=== PATIENT | male | born 1985 | race Two or more races ===

== ENCOUNTER 2017-06-16 12:12 | Inpatient (IN) | payer OTHER ==
[~2017-06-16] VITALS: Ht 182.9 cm; Wt 78.5 kg
[2017-06-16] MEDS ORDERED: LIDOCAINE 2% JELLY 11ml (GLYDO) ONE (13:03)
[2017-06-16] MEDS ORDERED: ONDANSETRON HCL 4 MG/2 ML VIAL IV ONE (14:00)
[2017-06-16] MEDS ORDERED: MORPHINE SULFATE 10 MG/ML INJ 1ML SDV IV ONE (14:00)
[2017-06-16] MEDS ORDERED: HYDROcodone-ACET 10/325MG TAB PO SCH (15:00)
[2017-06-16] MEDS ORDERED: fentaNYL CITRATE 100 MCG/2 ML VL ONE (15:07)
[2017-06-16] MEDS ORDERED: MIDAZOLAM HCL 1MG/1ML-2 ML VIAL ONE (15:07)
[2017-06-16 15:22] LABS: Urine Bacteria FEW /hpf (None Seen); Urine Blood 3+ /uL (Negative); Urine Mucus FEW (None Seen); Urine Specific Gravity 1.008 (1.001-1.035); Urine WBC 10 /hpf (0 - 3)
[2017-06-16] MEDS ORDERED: LIDOCAINE 2%HCL (LOCAL ANESTH.) INJ 20ML MDV ONE (15:38)
[2017-06-16 17:10] LABS: Basophils # (auto) 0 uL; Basophils % (auto) 0.3 % (0.0-2.0); Eosinophils # (auto) 0.1 uL; Eosinophils % (auto) 0.8 % (0.0-7.0); Hematocrit 42.3 % (41.0-53.0); Hemoglobin 14.6 g/dL (13.5-17.5); Lymphocytes % (auto) 9.5 % (10.0-50.0); Mean Corpuscular Hemoglobin 29.6 pg (28.0-32.0); Mean Corpuscular Hgb Conc. 34.7 g/dL (32.0-36.0); Mean Corpuscular Volume 85.4 fL (80.0-100.0); Monocytes # (auto) 0.9 uL; Monocytes % (auto) 8.6 % (0.0-12.0); Neutrophils # (auto) 8.6 uL; Neutrophils % (auto) 80.8 % (37.0-80.0); Platelet Count (auto) 140 10^3/uL (140-450); Red Blood Cells 4.95 10^6/uL (4.5-5.90); Red Cell Distribution Width 13.4 % (11.8-14.3); White Blood Cell 10.6 10^3/uL (4.4-10.8)
[2017-06-16 17:25] LABS: Albumin 3.9 g/dL (3.4-5.0); BUN/Creatinine Ratio 16.1; Calcium 8.9 mg/dL (8.5-10.1); Potassium 3.7 mmol/L (3.5-5.1)
[2017-06-16 17:28] LABS: Bilirubin, Total 0.9 mg/dL (0.2-1.0); Total Protein 6.8 g/dL (6.4-8.2)
[2017-06-16 17:34] LABS: INR 1.04 (0.9-1.15); Partial Thromboplastin Time 20.8 sec (22.64-33.71); Prothrombin Time 11.3 sec (9.37-12.3)
[2017-06-16 17:59] VITALS: BP 123/67
[2017-06-16] MEDS: TAMSULOSIN HYDROCHLORIDE 0.4 MG CAP PO SCH (18:10)
[2017-06-16] MEDS: HYDROcodone-ACET 10/325MG TAB PO PRN ×2 (18:10→22:28)
[2017-06-16] MEDS: MESALAMINE 400mg Delayed Release Cap PO SCH ×2 (18:11→22:28)
[2017-06-16] MEDS ORDERED: MULT-228 PO (18:31)
[2017-06-16] MEDS ORDERED: MESA1.2T PO (18:31)
[2017-06-16] MEDS ORDERED: CHOL20007 PO (18:31)
[2017-06-16 18:42] VITALS: BP 123/67
[2017-06-16] MEDS ORDERED: INFLUENZA QUAD 2017-2018 0.5 ML SYRG IM ONE (19:00)
[2017-06-16 22:00] VITALS: BP 111/47
[2017-06-16] MEDS: CHOLECALCIFEROL (VITD3) 1,000 UNIT TAB PO SCH (22:26)
[2017-06-16] MEDS: SULFAMETHOX W/TRIMETH(800/160MG) DS TAB PO SCH (22:26)
[2017-06-17] MEDS ORDERED: MORPHINE SULFATE 10 MG/ML INJ 1ML SDV IV ONE (00:15)
[2017-06-17] MEDS: HYDROcodone-ACET 10/325MG TAB PO PRN ×3 (03:38→21:05)
[2017-06-17 05:46] VITALS: BP 104/50
[2017-06-17] MEDS: MESALAMINE 400mg Delayed Release Cap PO SCH ×3 (06:23→22:06)
[2017-06-17 08:00] VITALS: BP 102/37
[2017-06-17 09:00] VITALS: BP 102/37
[2017-06-17] MEDS: CHOLECALCIFEROL (VITD3) 1,000 UNIT TAB PO SCH ×2 (09:08→22:06)
[2017-06-17] MEDS: SULFAMETHOX W/TRIMETH(800/160MG) DS TAB PO SCH ×2 (09:08→22:06)
[2017-06-17] MEDS ORDERED: ONDANSETRON HCL 4 MG/2 ML VIAL IV PRN (11:30)
[2017-06-17 12:52] VITALS: BP 123/77
[2017-06-17] MEDS: MORPHINE SULFATE 10 MG/ML INJ 1ML SDV IV PRN ×3 (13:38→22:09)
[2017-06-17 17:14] VITALS: BP 115/52
[2017-06-17] MEDS: TAMSULOSIN HYDROCHLORIDE 0.4 MG CAP PO SCH (17:48)
[2017-06-17 22:00] VITALS: BP 116/55
[2017-06-18] MEDS: MORPHINE SULFATE 10 MG/ML INJ 1ML SDV IV PRN ×3 (02:35→18:33)
[2017-06-18 05:00] VITALS: BP 104/58
[2017-06-18] MEDS: MESALAMINE 400mg Delayed Release Cap PO SCH ×2 (06:00→16:00)
[2017-06-18 08:00] VITALS: BP 117/55
[2017-06-18 09:00] VITALS: BP 117/55
[2017-06-18] MEDS ORDERED: ceFAZolin 1GM/50ML 50 ML IV ONE (09:16)
[2017-06-18 09:20] LABS: BUN/Creatinine Ratio 11.9; Calcium 8.5 mg/dL (8.5-10.1); Potassium 4.5 mmol/L (3.5-5.1)
[2017-06-18] MEDS ORDERED: MIDAZOLAM HCL 1MG/1ML-2 ML VIAL ONE (10:08)
[2017-06-18] MEDS ORDERED: PROPOFOL 10 MG/ML 20 ML IV ONE (10:08)
[2017-06-18] MEDS ORDERED: fentaNYL CITRATE 100 MCG/2 ML VL ONE (10:08)
[2017-06-18] MEDS ORDERED: ONDANSETRON HCL 4 MG/2 ML VIAL ONE (10:08)
[2017-06-18] MEDS ORDERED: SODIUM CHLORIDE LOCK 10 ML ONE (10:08)
[2017-06-18] MEDS ORDERED: HYDROmorphone HCL 2 MG/ML VL IV PRN (11:00)
[2017-06-18] MEDS ORDERED: METOCLOPRAMIDE HCL 5MG/ml INJ 2ml VIAL IV ONE (11:00)
[2017-06-18] MEDS ORDERED: KETOROLAC TROMETH 30 MG/ML 1ML VIAL IV ONE (11:00)
[2017-06-18 12:00] VITALS: BP 125/70
[2017-06-18] MEDS: SULFAMETHOX W/TRIMETH(800/160MG) DS TAB PO SCH (12:50)
[2017-06-18] MEDS: CHOLECALCIFEROL (VITD3) 1,000 UNIT TAB PO SCH (12:50)
[2017-06-18 14:05] VITALS: BP 125/70
[2017-06-18] MEDS: HYDROcodone-ACET 10/325MG TAB PO PRN (15:59)
[2017-06-18 17:30] VITALS: BP 121/55
[2017-06-18] MEDS: TAMSULOSIN HYDROCHLORIDE 0.4 MG CAP PO SCH (18:33)
== END 2017-06-18 21:47 | DRG 699 ==
LOC: ER 12:12 → OVERFLOW 12:13 → EEVIPCON 12:13 → EAST 18:30
PROVIDERS: ADMIT Internal Medicine; ATTEND Internal Medicine
PROC: 0T9B30Z Drainage of Bladder with Drainage Device, Percutaneous Approach (ICD-10-PCS; 2017-06-16)
PROC: 0T9B80Z Drainage of Bladder with Drainage Device, Via Natural or Artificial Opening Endoscopic (ICD-10-PCS; principal; 2017-06-18 10:11)
DX: N36.5 Urethral false passage (principal); K50.90 Crohn's disease, unspecified, without complications; R33.9 Retention of urine, unspecified; Z83.3 Family history of diabetes mellitus; Z87.442 Personal history of urinary calculi; Z88.1 Allergy status to other antibiotic agents; Z88.8 Allergy status to other drugs, medicaments and biological substances; Z91.041 Radiographic dye allergy status
CPT/HCPCS: 10022; 36415; 51702; 74176; 76856; 77012; 80048; 80053; 81001; 85025; 85610; 85730; 87086; 87088; 87186; 94761; A4223; C1729; J0690; J1885; J2250; J2405; J2704

== ENCOUNTER 2017-07-15 10:07 | Inpatient (IN) | payer OTHER ==
[~2017-07-15] VITALS: Ht 177.8 cm; Wt 78.6 kg
[~2017-07-15 10:07] MED LIST: CHOL20007 PO; MESA1.2T PO; MULT-228 PO
[2017-07-15] MEDS ORDERED: TAMSULOSIN HYDROCHLORIDE 0.4 MG CAP PO ONE ×2 (10:51→11:00)
[2017-07-15] MEDS ORDERED: SODIUM CHLORIDE 0.9% 1,000 ML IV ONE (10:51)
[2017-07-15] MEDS ORDERED: NALBUPHINE HCL 10 MG/1ml INJECTION IV ONE ×2 (11:00→12:45)
[2017-07-15] MEDS ORDERED: PROMETHAZINE HCL 25 MG/ML 1ML IV ONE (11:00)
[2017-07-15] MEDS ORDERED: LIDOCAINE 2% JELLY 11ml (GLYDO) ONE (11:12)
[2017-07-15] MEDS ORDERED: LIDOCAINE 2% JELLY 11ml (GLYDO) UR ONE (11:45)
[2017-07-15 11:50] LABS: Urine Bacteria FEW /hpf (None Seen); Urine Blood Negative /uL (Negative); Urine Specific Gravity 1.005 (1.001-1.035); Urine WBC 10 /hpf (0 - 3)
[2017-07-15] MEDS ORDERED: LIDOCAINE 2%HCL (LOCAL ANESTH.) INJ 20ML MDV ONE (12:59)
[2017-07-15] MEDS ORDERED: MIDAZOLAM HCL 1MG/1ML-2 ML VIAL ONE (13:14)
[2017-07-15] MEDS ORDERED: fentaNYL CITRATE 100 MCG/2 ML VL ONE (13:14)
[2017-07-15 16:59] LABS: Basophils # (auto) 0 uL; Basophils % (auto) 0.3 % (0.0-2.0); Eosinophils # (auto) 0.1 uL; Hematocrit 43.8 % (41.0-53.0); Hemoglobin 14.8 g/dL (13.5-17.5); Lymphocytes # (auto) 1.6 uL; Lymphocytes % (auto) 23.2 % (10.0-50.0); Mean Corpuscular Hemoglobin 29.5 pg (28.0-32.0); Mean Corpuscular Hgb Conc. 33.8 g/dL (32.0-36.0); Mean Corpuscular Volume 87.3 fL (80.0-100.0); Monocytes # (auto) 0.6 uL; Monocytes % (auto) 8.6 % (0.0-12.0); Neutrophils # (auto) 4.6 uL; Neutrophils % (auto) 65.9 % (37.0-80.0); Nucleated Red Blood Cells % 0.2 %; Platelet Count (auto) 199 10^3/uL (140-450); Red Blood Cells 5.02 10^6/uL (4.5-5.90); Red Cell Distribution Width 13.9 % (11.8-14.3); White Blood Cell 7.1 10^3/uL (4.4-10.8)
[2017-07-15] MEDS: HYDROcodone-ACET 10/325MG TAB PO PRN ×2 (17:10→22:37)
[2017-07-15 17:12] LABS: Calcium 8.6 mg/dL (8.5-10.1); Potassium 3.7 mmol/L (3.5-5.1)
[2017-07-15 17:15] LABS: Albumin 3.7 g/dL (3.4-5.0); BUN/Creatinine Ratio 13.8
[2017-07-15 17:18] LABS: INR 1.05 (0.9-1.15); Partial Thromboplastin Time 26.3 sec (22.64-33.71); Prothrombin Time 11.5 sec (9.37-12.3)
[2017-07-15 17:25] LABS: Bilirubin, Total 0.7 mg/dL (0.2-1.0); Total Protein 6.4 g/dL (6.4-8.2)
[2017-07-15] MEDS ORDERED: HYDROcodone-ACET 10/325MG TAB PO SCH (18:00)
[2017-07-15 22:00] VITALS: BP 102/44
[2017-07-15] MEDS: SULFAMETHOX W/TRIMETH(800/160MG) DS TAB PO SCH (22:35)
[2017-07-15] MEDS ORDERED: MESA800T2 PO (23:49)
[2017-07-16] MEDS: HYDROcodone-ACET 10/325MG TAB PO PRN ×2 (02:41→09:48)
[2017-07-16 06:01] VITALS: BP 101/53
[2017-07-16 06:04] LABS: Basophils # (auto) 0 uL; Basophils % (auto) 0.7 % (0.0-2.0); Eosinophils # (auto) 0.2 uL; Eosinophils % (auto) 3.6 % (0.0-7.0); Hematocrit 43.1 % (41.0-53.0); Hemoglobin 14.8 g/dL (13.5-17.5); Lymphocytes # (auto) 2.1 uL; Mean Corpuscular Hemoglobin 29.7 pg (28.0-32.0); Mean Corpuscular Hgb Conc. 34.4 g/dL (32.0-36.0); Mean Corpuscular Volume 86.6 fL (80.0-100.0); Monocytes # (auto) 0.7 uL; Neutrophils # (auto) 2.6 uL; Neutrophils % (auto) 45.7 % (37.0-80.0); Nucleated Red Blood Cells % 0.2 %; Platelet Count (auto) 177 10^3/uL (140-450); Red Blood Cells 4.98 10^6/uL (4.5-5.90); Red Cell Distribution Width 13.9 % (11.8-14.3); White Blood Cell 5.7 10^3/uL (4.4-10.8)
[2017-07-16 06:20] LABS: Albumin 3.4 g/dL (3.4-5.0); Calcium 8.3 mg/dL (8.5-10.1); Potassium 4.3 mmol/L (3.5-5.1)
[2017-07-16 06:22] LABS: INR 1.05 (0.9-1.15); Partial Thromboplastin Time 26.4 sec (22.64-33.71); Prothrombin Time 11.5 sec (9.37-12.3)
[2017-07-16 06:26] LABS: Bilirubin, Total 0.7 mg/dL (0.2-1.0); Total Protein 5.9 g/dL (6.4-8.2)
[2017-07-16 09:00] VITALS: BP 103/54
[2017-07-16] MEDS: SULFAMETHOX W/TRIMETH(800/160MG) DS TAB PO SCH ×3 (09:21→22:42)
[2017-07-16 13:00] VITALS: BP 101/51
[2017-07-16] MEDS: OXYCODONE W/ ACETAMINOPHEN 5/325MG TABLET PO PRN ×2 (13:57→19:15)
[2017-07-16 17:00] VITALS: BP 105/54
[2017-07-16 22:00] VITALS: BP 102/60
[2017-07-17] MEDS: OXYCODONE W/ ACETAMINOPHEN 5/325MG TABLET PO PRN ×4 (01:00→19:52)
[2017-07-17 05:00] VITALS: BP 102/60
[2017-07-17 09:00] VITALS: BP 125/82
[2017-07-17] MEDS: SULFAMETHOX W/TRIMETH(800/160MG) DS TAB PO SCH ×2 (09:31→21:46)
[2017-07-17 13:00] VITALS: BP 100/42
[2017-07-17] MEDS: methylPREDNISolone SOD SUCC 125 MG/2 ML VL IV SCH ×2 (16:33→21:46)
[2017-07-17] MEDS: traMADol HCL 50 MG TAB PO PRN (16:34)
[2017-07-17] MEDS: PANTOPRAZOLE 40 MG TAB PO SCH (16:45)
[2017-07-17 17:15] VITALS: BP 103/57
[2017-07-17 22:06] VITALS: BP 109/55
[2017-07-18 05:24] VITALS: BP 117/58
[2017-07-18] MEDS: OXYCODONE W/ ACETAMINOPHEN 5/325MG TABLET PO PRN ×3 (08:34→21:00)
[2017-07-18] MEDS: methylPREDNISolone SOD SUCC 125 MG/2 ML VL IV SCH (08:34)
[2017-07-18] MEDS: SULFAMETHOX W/TRIMETH(800/160MG) DS TAB PO SCH ×2 (08:34→22:11)
[2017-07-18 09:12] VITALS: BP 116/57
[2017-07-18] MEDS: PANTOPRAZOLE 40 MG TAB PO SCH (10:05)
[2017-07-18 11:57] VITALS: BP 109/43
[2017-07-18] MEDS: traMADol HCL 50 MG TAB PO PRN (13:17)
[2017-07-18] MEDS: ENOXAPARIN SOD 40 MG/0.4 ML SYRINGE SC SCH (14:55)
[2017-07-18 16:34] VITALS: BP 116/53
[2017-07-18 22:00] VITALS: BP 141/77
[2017-07-19] MEDS: methylPREDNISolone SOD SUCC 125 MG/2 ML VL IV SCH ×3 (00:42→21:30)
[2017-07-19] MEDS: OXYCODONE W/ ACETAMINOPHEN 5/325MG TABLET PO PRN ×4 (03:44→21:30)
[2017-07-19 05:00] VITALS: BP 120/55
[2017-07-19 09:00] VITALS: BP 122/57
[2017-07-19] MEDS: ENOXAPARIN SOD 40 MG/0.4 ML SYRINGE SC SCH (09:19)
[2017-07-19] MEDS: SULFAMETHOX W/TRIMETH(800/160MG) DS TAB PO SCH ×2 (09:21→21:30)
[2017-07-19] MEDS: PANTOPRAZOLE 40 MG TAB PO SCH (09:24)
[2017-07-19 11:40] LABS: Basophils # (auto) 0.1 uL; Basophils % (auto) 0.5 % (0.0-2.0); Eosinophils # (auto) 0 uL; Eosinophils % (auto) 0.2 % (0.0-7.0); Hemoglobin 15.7 g/dL (13.5-17.5); Lymphocytes # (auto) 0.4 uL; Lymphocytes % (auto) 2.2 % (10.0-50.0); Mean Corpuscular Hemoglobin 28.9 pg (28.0-32.0); Mean Corpuscular Hgb Conc. 33.4 g/dL (32.0-36.0); Mean Corpuscular Volume 86.7 fL (80.0-100.0); Monocytes # (auto) 0.8 uL; Monocytes % (auto) 4.3 % (0.0-12.0); Neutrophils # (auto) 16.8 uL; Neutrophils % (auto) 92.8 % (37.0-80.0); Platelet Count (auto) 227 10^3/uL (140-450); Red Blood Cells 5.43 10^6/uL (4.5-5.90); Red Cell Distribution Width 13.5 % (11.8-14.3); White Blood Cell 18.1 10^3/uL (4.4-10.8)
[2017-07-19] MEDS: traMADol HCL 50 MG TAB PO PRN (11:42)
[2017-07-19 13:00] VITALS: BP 109/53
[2017-07-19 17:00] VITALS: BP 117/57
[2017-07-19 22:00] VITALS: BP 113/64
[2017-07-20 05:00] VITALS: BP 120/55
[2017-07-20 06:56] LABS: INR 1.03 (0.9-1.15); Partial Thromboplastin Time 24.3 sec (22.64-33.71); Prothrombin Time 11.2 sec (9.37-12.3)
[2017-07-20 07:09] LABS: Potassium 4.2 mmol/L (3.5-5.1)
[2017-07-20 07:15] LABS: Albumin 3.3 g/dL (3.4-5.0); Calcium 8.2 mg/dL (8.5-10.1)
[2017-07-20 07:28] LABS: Bilirubin, Total 0.3 mg/dL (0.2-1.0); Total Protein 6.1 g/dL (6.4-8.2)
[2017-07-20 08:34] LABS: Urine Bacteria NONE SEEN /hpf (None Seen); Urine Blood 2+ /uL (Negative); Urine Mucus FEW (None Seen); Urine Specific Gravity 1.033 (1.001-1.035); Urine WBC 6 /hpf (0 - 3)
[2017-07-20] MEDS: OXYCODONE W/ ACETAMINOPHEN 5/325MG TABLET PO PRN ×3 (09:09→22:44)
[2017-07-20 09:38] VITALS: BP 108/53
[2017-07-20] MEDS: ENOXAPARIN SOD 40 MG/0.4 ML SYRINGE SC SCH (10:00)
[2017-07-20] MEDS: methylPREDNISolone SOD SUCC 125 MG/2 ML VL IV SCH ×2 (10:28→22:35)
[2017-07-20] MEDS: SULFAMETHOX W/TRIMETH(800/160MG) DS TAB PO SCH ×2 (10:28→22:35)
[2017-07-20] MEDS: PANTOPRAZOLE 40 MG TAB PO SCH (10:28)
[2017-07-20 12:26] VITALS: BP 108/53
[2017-07-20 16:38] VITALS: BP 115/55
[2017-07-20] MEDS: TAMSULOSIN HYDROCHLORIDE 0.4 MG CAP PO SCH (18:07)
[2017-07-20 20:00] VITALS: BP 114/60
[2017-07-20 22:39] VITALS: BP 114/60
[2017-07-21 04:56] VITALS: BP 106/59
[2017-07-21] MEDS: methylPREDNISolone SOD SUCC 125 MG/2 ML VL IV SCH ×2 (06:05→21:25)
[2017-07-21] MEDS: OXYCODONE W/ ACETAMINOPHEN 5/325MG TABLET PO PRN ×3 (06:06→21:25)
[2017-07-21 08:52] VITALS: BP 113/55
[2017-07-21] MEDS: SULFAMETHOX W/TRIMETH(800/160MG) DS TAB PO SCH ×2 (10:17→21:25)
[2017-07-21] MEDS: ENOXAPARIN SOD 40 MG/0.4 ML SYRINGE SC SCH (10:18)
[2017-07-21] MEDS: traMADol HCL 50 MG TAB PO PRN ×2 (10:18→12:02)
[2017-07-21] MEDS: PANTOPRAZOLE 40 MG TAB PO SCH (10:18)
[2017-07-21 12:00] VITALS: BP 124/53
[2017-07-21] MEDS ORDERED: MORPHINE SULFATE 4 MG/ML SYR/VIAL IV ONE (12:00)
[2017-07-21] MEDS ORDERED: ONDANSETRON HCL 4 MG/2 ML VIAL IV ONE (12:00)
[2017-07-21] MEDS ORDERED: NEOMYCIN-BACITRACIN-POLYM UNITDOSE PKG TOP OINT TOP ONE (13:54)
[2017-07-21 17:00] VITALS: BP 126/56
[2017-07-21] MEDS: TAMSULOSIN HYDROCHLORIDE 0.4 MG CAP PO SCH (17:56)
[2017-07-21 20:00] VITALS: BP 126/61
[2017-07-21 21:55] VITALS: BP 126/61
[2017-07-22 04:39] VITALS: BP 113/57
[2017-07-22 06:23] LABS: Basophils # (auto) 0 uL; Basophils % (auto) 0.1 % (0.0-2.0); Eosinophils # (auto) 0 uL; Hematocrit 47.7 % (41.0-53.0); Hemoglobin 16.3 g/dL (13.5-17.5); Lymphocytes # (auto) 0.6 uL; Lymphocytes % (auto) 4.3 % (10.0-50.0); Mean Corpuscular Hemoglobin 29.9 pg (28.0-32.0); Mean Corpuscular Hgb Conc. 34.1 g/dL (32.0-36.0); Mean Corpuscular Volume 87.8 fL (80.0-100.0); Monocytes # (auto) 0.6 uL; Monocytes % (auto) 4.7 % (0.0-12.0); Neutrophils # (auto) 12.4 uL; Neutrophils % (auto) 90.9 % (37.0-80.0); Nucleated Red Blood Cells % 0.1 %; Platelet Count (auto) 99 10^3/uL (140-450); Red Blood Cells 5.44 10^6/uL (4.5-5.90); Red Cell Distribution Width 13.3 % (11.8-14.3); White Blood Cell 13.7 10^3/uL (4.4-10.8)
[2017-07-22 09:00] VITALS: BP 110/53
[2017-07-22] MEDS: SULFAMETHOX W/TRIMETH(800/160MG) DS TAB PO SCH (09:24)
[2017-07-22] MEDS: methylPREDNISolone SOD SUCC 125 MG/2 ML VL IV SCH (09:24)
[2017-07-22] MEDS: PANTOPRAZOLE 40 MG TAB PO SCH (09:24)
[2017-07-22] MEDS: ENOXAPARIN SOD 40 MG/0.4 ML SYRINGE SC SCH (09:25)
[2017-07-22] MEDS: OXYCODONE W/ ACETAMINOPHEN 5/325MG TABLET PO PRN (10:54)
[2017-07-22 13:00] VITALS: BP 119/62
[2017-09-02] MEDS ORDERED: OXYB10TA13 PO (07:10)
[2017-09-02] MEDS ORDERED: AZAT50TA18 PO (07:11)
[2017-09-02] MEDS ORDERED: PRE5T PO (07:11)
[2017-09-02] MEDS ORDERED: LORA-654 PO (07:12)
[2017-09-02] MEDS ORDERED: MORP60TA25 PO (07:12)
[2017-09-02] MEDS ORDERED: SULF400T11 PO (07:14)
[2017-09-02] MEDS ORDERED: LEVO500T21 PO (07:14)
[2017-09-02] MEDS ORDERED: ADAL1INJ3 SC (07:14)
[2017-09-02] MEDS ORDERED: TAM04C PO (07:14)
== END 2017-07-22 15:30 | disposition home or self-care (01) | DRG 699 ==
LOC: EDBD 10:07 → ER 10:07 → EAST 10:08 → EEVIPCON 10:08
PROVIDERS: ADMIT Internal Medicine; ATTEND Internal Medicine
PROC: 0T9B30Z Drainage of Bladder with Drainage Device, Percutaneous Approach (ICD-10-PCS; principal; 2017-07-15)
DX: N36.5 Urethral false passage (principal); K50.90 Crohn's disease, unspecified, without complications; R33.9 Retention of urine, unspecified; F15.90 Other stimulant use, unspecified, uncomplicated; Z87.442 Personal history of urinary calculi; Z83.3 Family history of diabetes mellitus; Z80.0 Family history of malignant neoplasm of digestive organs; Z88.1 Allergy status to other antibiotic agents; Z91.041 Radiographic dye allergy status; Z88.8 Allergy status to other drugs, medicaments and biological substances; Z87.440 Personal history of urinary (tract) infections
CPT/HCPCS: 10022; 36415; 71046; 76856; 77012; 80053; 81001; 85025; 85610; 85730; 87081; 87086; 87088; 87186; 93005; 96374; 96375; 96376; A4223; C1729; J2250; J2405

== ENCOUNTER 2017-07-27 11:29 | Emergency (ER) | payer OTHER ==
[~2017-07-27] VITALS: Ht 185.4 cm; Wt 74.8 kg
[~2017-07-27 11:29] MED LIST changes: +MESA800T2 PO
[2017-07-27] MEDS ORDERED: MORPHINE SULFATE 4 MG/ML SYR/VIAL IV ONE (11:45)
[2017-07-27] MEDS ORDERED: ONDANSETRON HCL 4 MG/2 ML VIAL IV ONE (11:45)
[2017-07-27 12:21] LABS: Basophils # (auto) 0 uL; Eosinophils # (auto) 0.2 uL; Eosinophils % (auto) 1.7 % (0.0-7.0); Hematocrit 49.8 % (41.0-53.0); Hemoglobin 16.8 g/dL (13.5-17.5); Lymphocytes # (auto) 2.5 uL; Lymphocytes % (auto) 17.3 % (10.0-50.0); Mean Corpuscular Hemoglobin 29.2 pg (28.0-32.0); Mean Corpuscular Hgb Conc. 33.7 g/dL (32.0-36.0); Mean Corpuscular Volume 86.7 fL (80.0-100.0); Monocytes # (auto) 1.2 uL; Monocytes % (auto) 8.7 % (0.0-12.0); Neutrophils # (auto) 10.3 uL; Neutrophils % (auto) 72.3 % (37.0-80.0); Nucleated Red Blood Cells % 0.1 %; Platelet Count (auto) 303 10^3/uL (140-450); Red Blood Cells 5.74 10^6/uL (4.5-5.90); Red Cell Distribution Width 14.1 % (11.8-14.3); White Blood Cell 14.2 10^3/uL (4.4-10.8)
[2017-07-27 12:25] VITALS: BP 145/84
[2017-07-27 12:35] LABS: Albumin 4.2 g/dL (3.4-5.0); BUN/Creatinine Ratio 19.4; Calcium 9.1 mg/dL (8.5-10.1); Potassium 4.5 mmol/L (3.5-5.1)
[2017-07-27 12:37] LABS: Bilirubin, Total 0.7 mg/dL (0.2-1.0); Total Protein 7.4 g/dL (6.4-8.2)
[2017-07-27 12:40] LABS: INR 0.97 (0.9-1.15); Partial Thromboplastin Time 24.8 sec (22.64-33.71); Prothrombin Time 10.6 sec (9.37-12.3)
[2017-09-02] MEDS ORDERED: OXYB10TA13 PO (07:10)
[2017-09-02] MEDS ORDERED: PRE5T PO (07:11)
[2017-09-02] MEDS ORDERED: AZAT50TA18 PO (07:11)
[2017-09-02] MEDS ORDERED: MORP60TA25 PO (07:12)
[2017-09-02] MEDS ORDERED: LORA-654 PO (07:12)
[2017-09-02] MEDS ORDERED: SULF400T11 PO (07:14)
[2017-09-02] MEDS ORDERED: LEVO500T21 PO (07:14)
[2017-09-02] MEDS ORDERED: TAM04C PO (07:14)
[2017-09-02] MEDS ORDERED: ADAL1INJ3 SC (07:14)
== END 2017-07-27 13:44 | disposition home or self-care (01) ==
LOC: ER 11:29
DX: R33.9 Retention of urine, unspecified (principal); D72.829 Elevated white blood cell count, unspecified; Z88.6 Allergy status to analgesic agent; Z88.8 Allergy status to other drugs, medicaments and biological substances; Z91.041 Radiographic dye allergy status
CPT/HCPCS: 36415; 80053; 85025; 85610; 85730; 94761; 96374; 96375; 99284; J2270; J2405

== ENCOUNTER 2017-09-17 17:48 | Inpatient (IN) | payer OTHER ==
[~2017-09-17] VITALS: Ht 182.9 cm; Wt 58.0 kg
[~2017-09-17 17:48] MED LIST changes: +ADAL1INJ3 SC; +AZAT50TA18 PO; -CHOL20007 PO; +LEVO500T21 PO; +LORA-654 PO; -MESA800T2 PO; +MORP60TA25 PO; -MULT-228 PO; +OXYB10TA13 PO; +PRE5T PO; +TAM04C PO
[2017-09-17] MEDS ORDERED: SODIUM CHLORIDE 0.9% 1,000 ML IV ONE (18:18)
[2017-09-17] MEDS ORDERED: MORPHINE SULFATE 8mg/ml INJ SDV IV ONE (18:30)
[2017-09-17 19:29] LABS: Basophils # (auto) 0.1 uL; Basophils % (auto) 0.4 % (0.0-2.0); Eosinophils # (auto) 0.3 uL; Hemoglobin 14.5 g/dL (13.5-17.5); Lymphocytes # (auto) 1.8 uL; Lymphocytes % (auto) 11.8 % (10.0-50.0); Mean Corpuscular Hemoglobin 28.8 pg (28.0-32.0); Mean Corpuscular Hgb Conc. 33.7 g/dL (32.0-36.0); Mean Corpuscular Volume 85.6 fL (80.0-100.0); Monocytes # (auto) 1.5 uL; Monocytes % (auto) 9.7 % (0.0-12.0); Neutrophils # (auto) 11.7 uL; Neutrophils % (auto) 76.1 % (37.0-80.0); Nucleated Red Blood Cells % 0.1 %; Platelet Count (auto) 259 10^3/uL (140-450); Red Blood Cells 5.03 10^6/uL (4.5-5.90); Red Cell Distribution Width 13.7 % (11.8-14.3); White Blood Cell 15.4 10^3/uL (4.4-10.8)
[2017-09-17] MEDS ORDERED: IOHEXOL 300 MG/ML 100ML BOTTLE IJ ONE (19:35)
[2017-09-17 19:48] LABS: INR 1.02 (0.9-1.15); Partial Thromboplastin Time 27.7 sec (22.64-33.71); Prothrombin Time 11.1 sec (9.37-12.3)
[2017-09-17 20:21] LABS: Albumin 3.9 g/dL (3.4-5.0); BUN/Creatinine Ratio 16.1; Bilirubin, Total 0.5 mg/dL (0.2-1.0); Calcium 8.9 mg/dL (8.5-10.1); Potassium 3.9 mmol/L (3.5-5.1); Total Protein 6.9 g/dL (6.4-8.2)
[2017-09-17] MEDS ORDERED: LEVOFLOXACIN 750MG 150 ML IV ONE ×2 (21:00→21:28)
[2017-09-17] MEDS ORDERED: OXYBUTYNIN CHL 5 MG TAB PO ONE (21:30)
[2017-09-17] MEDS ORDERED: ZOLPIDEM TARTRATE 5 MG TAB PO PRN (23:15)
[2017-09-18] MEDS ORDERED: LIDOCAINE 1% (LOCAL ANESTH.) PF 5ml SDV ONE (00:31)
[2017-09-18] MEDS ORDERED: fentaNYL CITRATE 100 MCG/2 ML VL IV ONE ×2 (01:00)
[2017-09-18 01:40] VITALS: BP 117/72
[2017-09-18] MEDS: HYDROcodone-ACET 10/325MG TAB PO PRN ×2 (04:57→12:00)
[2017-09-18 05:21] VITALS: BP 115/68
[2017-09-18 09:00] VITALS: BP 102/66
[2017-09-18] MEDS ORDERED: CLINDAMYCIN 600MG IV 50 ML IV SCH (10:00)
[2017-09-18 13:00] VITALS: BP_SYST 113; BP_SYST 115; BP_DIAS 68; BP_DIAS 70
[2017-09-18 15:38] LABS: Urine Amorphous Crystal FEW /hpf (None Seen); Urine Bacteria NONE SEEN /hpf (None Seen); Urine Blood 1+ /uL (Negative); Urine Specific Gravity 1.022 (1.001-1.035); Urine WBC 12 /hpf (0 - 3)
[2017-09-18 17:00] VITALS: BP 126/47
[2017-09-18] MEDS: traMADol HCL 50 MG TAB PO PRN ×2 (17:15→23:40)
[2017-09-18] MEDS ORDERED: LEVOFLOXACIN 500MG 100 ML IV SCH (22:00)
[2017-09-18] MEDS: CLINDAMYCIN 600MG IV 50 ML IV SCH (22:29)
[2017-09-18] MEDS: METHOCARBAMOL 500 MG TAB PO PRN (22:30)
[2017-09-19 05:00] VITALS: BP 109/62
[2017-09-19] MEDS: CLINDAMYCIN 600MG IV 50 ML IV SCH ×3 (06:02→21:59)
[2017-09-19 09:00] VITALS: BP 102/61
[2017-09-19] MEDS: OXYBUTYNIN CHL 5 MG TAB PO SCH ×2 (10:37→21:59)
[2017-09-19] MEDS: traMADol HCL 50 MG TAB PO PRN ×2 (10:37→17:05)
[2017-09-19] MEDS: METHOCARBAMOL 500 MG TAB PO PRN ×2 (11:43→18:46)
[2017-09-19 13:00] VITALS: BP 105/64
[2017-09-19 17:00] VITALS: BP 101/57
[2017-09-19 22:00] VITALS: BP 102/56
[2017-09-20] MEDS: METHOCARBAMOL 500 MG TAB PO PRN ×4 (00:29→17:58)
[2017-09-20] MEDS: traMADol HCL 50 MG TAB PO PRN ×4 (00:30→17:59)
[2017-09-20 05:25] VITALS: BP 102/45
[2017-09-20] MEDS: CLINDAMYCIN 600MG IV 50 ML IV SCH ×3 (06:12→21:52)
[2017-09-20 09:00] VITALS: BP 112/56
[2017-09-20] MEDS: OXYBUTYNIN CHL 5 MG TAB PO SCH ×2 (10:14→21:52)
[2017-09-20 13:00] VITALS: BP 101/52
[2017-09-20 15:25] LABS: Basophils # (auto) 0.1 uL; Basophils % (auto) 0.9 % (0.0-2.0); Eosinophils # (auto) 0.5 uL; Eosinophils % (auto) 9.1 % (0.0-7.0); Hematocrit 40.9 % (41.0-53.0); Hemoglobin 14.4 g/dL (13.5-17.5); Lymphocytes # (auto) 1.5 uL; Lymphocytes % (auto) 26.1 % (10.0-50.0); Mean Corpuscular Hemoglobin 29.4 pg (28.0-32.0); Mean Corpuscular Hgb Conc. 35.3 g/dL (32.0-36.0); Mean Corpuscular Volume 83.4 fL (80.0-100.0); Monocytes # (auto) 0.6 uL; Monocytes % (auto) 10.3 % (0.0-12.0); Neutrophils # (auto) 3.2 uL; Neutrophils % (auto) 53.6 % (37.0-80.0); Nucleated Red Blood Cells % 0.4 %; Platelet Count (auto) 236 10^3/uL (140-450); Red Cell Distribution Width 13.3 % (11.8-14.3); White Blood Cell 5.9 10^3/uL (4.4-10.8)
[2017-09-20 17:00] VITALS: BP 99/49
[2017-09-20 22:24] VITALS: BP 115/62
[2017-09-21] MEDS: traMADol HCL 50 MG TAB PO PRN ×4 (00:25→18:26)
[2017-09-21] MEDS: METHOCARBAMOL 500 MG TAB PO PRN ×4 (00:25→18:26)
[2017-09-21 05:22] VITALS: BP 100/55
[2017-09-21] MEDS: CLINDAMYCIN 600MG IV 50 ML IV SCH ×3 (06:11→21:54)
[2017-09-21 08:26] VITALS: BP 110/60
[2017-09-21] MEDS: OXYBUTYNIN CHL 5 MG TAB PO SCH ×2 (10:25→21:54)
[2017-09-21 11:33] VITALS: BP 94/50
[2017-09-21 16:54] VITALS: BP 115/69
[2017-09-21 22:00] VITALS: BP 123/68
[2017-09-22] MEDS: traMADol HCL 50 MG TAB PO PRN ×2 (00:27→08:10)
[2017-09-22] MEDS: METHOCARBAMOL 500 MG TAB PO PRN ×2 (00:28→11:00)
[2017-09-22 06:00] VITALS: BP 104/53
[2017-09-22] MEDS: CLINDAMYCIN 600MG IV 50 ML IV SCH ×2 (06:05→14:00)
[2017-09-22] MEDS: OXYBUTYNIN CHL 5 MG TAB PO SCH (08:10)
[2017-09-22 09:00] VITALS: BP 105/50
[2017-09-22] MEDS ORDERED: KETOROLAC TROMETH 30 MG/ML 1ML VIAL IV PRN (12:00)
[2017-09-22] MEDS ORDERED: HYDROcodone-ACET 5/325MG TAB PO PRN (12:00)
[2017-09-22] MEDS ORDERED: LEVO500T21 PO (12:29)
[2017-09-22 13:00] VITALS: BP 112/71
[2017-09-22] MEDS ORDERED: OXYBUTYNIN CHL 5 MG TAB PO SCH (14:00)
== END 2017-09-22 14:40 | disposition home or self-care (01) | DRG 699 ==
LOC: EEVIPCON 17:48 → EDBD 17:48 → ER 17:48 → OVERFLOW 17:49 → EAST 09-18 00:41
PROVIDERS: ADMIT Internal Medicine; ATTEND Internal Medicine
PROC: 0T29X0Z Change Drainage Device in Ureter, External Approach (ICD-10-PCS; principal; 2017-09-17)
DX: T83.028A Displacement of other urinary catheter, initial encounter (principal); K50.90 Crohn's disease, unspecified, without complications; L02.211 Cutaneous abscess of abdominal wall; L03.311 Cellulitis of abdominal wall; T83.518A Infection and inflammatory reaction due to other urinary catheter, initial encounter; R33.9 Retention of urine, unspecified; Z83.3 Family history of diabetes mellitus; Z80.0 Family history of malignant neoplasm of digestive organs; Z87.442 Personal history of urinary calculi; Y84.6 Urinary catheterization as the cause of abnormal reaction of the patient, or of later complication, without mention of misadventure at the time of the procedure; Y92.89 Other specified places as the place of occurrence of the external cause
CPT/HCPCS: 36415; 70551; 72148; 74176; 80053; 81001; 85025; 85610; 85730; 87081; 87086; 93005; 94761; 96361; 96365; 96375; J1956; J2270; J3490

== ENCOUNTER 2017-10-17 19:41 | Inpatient (IN) | payer OTHER ==
[~2017-10-17] VITALS: Ht 182.9 cm; Wt 79.5 kg
[~2017-10-17 19:41] MED LIST changes: -ADAL1INJ3 SC; -AZAT50TA18 PO; -MORP60TA25 PO; -OXYB10TA13 PO; -PRE5T PO; -TAM04C PO
[2017-10-17] MEDS ORDERED: ONDANSETRON HCL 4 MG/2 ML VIAL IV ONE (22:30)
[2017-10-18] VITALS (7 sets, daily range): BP systolic 97–118; BP diastolic 54–68
[2017-10-18] MEDS: OXYCODONE W/ ACETAMINOPHEN 5/325MG TABLET PO PRN ×5 (00:38→20:07)
[2017-10-18 00:58] LABS: Basophils # (auto) 0 uL; Basophils % (auto) 0.1 % (0.0-2.0); Eosinophils # (auto) 0.1 uL; Eosinophils % (auto) 1.3 % (0.0-7.0); Hemoglobin 14.3 g/dL (13.5-17.5); Lymphocytes # (auto) 2.5 uL; Lymphocytes % (auto) 25.8 % (10.0-50.0); Mean Corpuscular Hemoglobin 29.6 pg (28.0-32.0); Mean Corpuscular Hgb Conc. 34.1 g/dL (32.0-36.0); Mean Corpuscular Volume 86.9 fL (80.0-100.0); Monocytes # (auto) 0.9 uL; Monocytes % (auto) 9.5 % (0.0-12.0); Neutrophils # (auto) 6.3 uL; Neutrophils % (auto) 63.3 % (37.0-80.0); Nucleated Red Blood Cells % 0.1 %; Platelet Count (auto) 207 10^3/uL (140-450); Red Blood Cells 4.83 10^6/uL (4.5-5.90); White Blood Cell 9.9 10^3/uL (4.4-10.8)
[2017-10-18 01:07] LABS: INR 1.04 (0.9-1.15); Partial Thromboplastin Time 24.2 sec (23.78-33.04); Prothrombin Time 11.1 sec (9.27-12.13)
[2017-10-18 01:11] LABS: Albumin 3.4 g/dL (3.4-5.0); BUN/Creatinine Ratio 21.8; Calcium 8.7 mg/dL (8.5-10.1); Potassium 3.9 mmol/L (3.5-5.1)
[2017-10-18 01:13] LABS: Bilirubin, Total 0.7 mg/dL (0.2-1.0); Total Protein 6.4 g/dL (6.4-8.2)
[2017-10-18] MEDS: ONDANSETRON HCL 4 MG/2 ML VIAL IV PRN ×4 (02:01→20:07)
[2017-10-18 02:57] LABS: Urine WBC 87 /hpf (0 - 3)
[2017-10-18 03:01] LABS: Urine Specific Gravity 1.015 (1.001-1.035)
[2017-10-18 03:02] LABS: Urine Bacteria Moderate /hpf (None Seen)
[2017-10-18] MEDS ORDERED: MESA800T PO (06:51)
[2017-10-18] MEDS ORDERED: OXYB15TA12 PO (06:51)
[2017-10-18] MEDS: VANCOMYCIN 1GM/250ML 250 ML IV SCH ×2 (10:16→23:02)
[2017-10-18] MEDS: TAMSULOSIN HYDROCHLORIDE 0.4 MG CAP PO SCH (10:16)
[2017-10-18] MEDS: LORazepam 0.5 MG TAB PO SCH ×2 (10:16→23:03)
[2017-10-19] MEDS: ONDANSETRON HCL 4 MG/2 ML VIAL IV PRN ×5 (00:46→18:43)
[2017-10-19] MEDS: OXYCODONE W/ ACETAMINOPHEN 5/325MG TABLET PO PRN ×6 (00:46→22:58)
[2017-10-19 04:39] VITALS: BP 100/53
[2017-10-19 06:56] LABS: Albumin 3.3 g/dL (3.4-5.0); BUN/Creatinine Ratio 29.2; Bilirubin, Total 0.5 mg/dL (0.2-1.0); Calcium 8.5 mg/dL (8.5-10.1); Potassium 3.9 mmol/L (3.5-5.1); Total Protein 6.1 g/dL (6.4-8.2)
[2017-10-19 09:00] VITALS: BP 105/50
[2017-10-19] MEDS: LORazepam 0.5 MG TAB PO SCH ×2 (09:32→22:00)
[2017-10-19] MEDS: VANCOMYCIN 1GM/250ML 250 ML IV SCH ×2 (09:32→22:00)
[2017-10-19] MEDS: TAMSULOSIN HYDROCHLORIDE 0.4 MG CAP PO SCH (09:32)
[2017-10-19 13:00] VITALS: BP 108/49
[2017-10-19 17:00] VITALS: BP 120/63
[2017-10-19 20:00] VITALS: BP 114/57
[2017-10-19 21:53] VITALS: BP 114/57
[2017-10-20 04:00] VITALS: BP 116/63
[2017-10-20 05:55] LABS: Albumin 3.3 g/dL (3.4-5.0); BUN/Creatinine Ratio 26.2; Bilirubin, Total 0.4 mg/dL (0.2-1.0); Calcium 8.6 mg/dL (8.5-10.1); Potassium 4.3 mmol/L (3.5-5.1); Total Protein 6.2 g/dL (6.4-8.2)
[2017-10-20] MEDS: OXYCODONE W/ ACETAMINOPHEN 5/325MG TABLET PO PRN ×2 (06:29→10:21)
[2017-10-20 08:44] VITALS: BP_SYST 104; BP_SYST 109; BP_DIAS 57; BP_DIAS 68
[2017-10-20 09:13] LABS: Basophils # (auto) 0 uL; Basophils % (auto) 0.6 % (0.0-2.0); Eosinophils # (auto) 0.4 uL; Eosinophils % (auto) 5.8 % (0.0-7.0); Hematocrit 45.3 % (41.0-53.0); Hemoglobin 15.5 g/dL (13.5-17.5); Lymphocytes # (auto) 2.4 uL; Lymphocytes % (auto) 33.5 % (10.0-50.0); Mean Corpuscular Hemoglobin 29.1 pg (28.0-32.0); Mean Corpuscular Hgb Conc. 34.3 g/dL (32.0-36.0); Mean Corpuscular Volume 85.1 fL (80.0-100.0); Monocytes # (auto) 0.7 uL; Monocytes % (auto) 9.8 % (0.0-12.0); Neutrophils # (auto) 3.5 uL; Neutrophils % (auto) 50.3 % (37.0-80.0); Nucleated Red Blood Cells % 0.2 %; Platelet Count (auto) 227 10^3/uL (140-450); Red Blood Cells 5.32 10^6/uL (4.5-5.90); Red Cell Distribution Width 13.5 % (11.8-14.3)
[2017-10-20] MEDS: LORazepam 0.5 MG TAB PO SCH ×2 (09:50→22:05)
[2017-10-20] MEDS: VANCOMYCIN 1,250 MG in D5W 5% 250 ML IV SCH ×2 (09:50→22:05)
[2017-10-20] MEDS: TAMSULOSIN HYDROCHLORIDE 0.4 MG CAP PO SCH (09:50)
[2017-10-20 12:20] VITALS: BP 116/52
[2017-10-20 17:42] VITALS: BP 102/54
[2017-10-20 20:00] VITALS: BP 129/66
[2017-10-20 22:00] VITALS: BP 129/66
[2017-10-20] MEDS: traMADol HCL 50 MG TAB PO PRN (22:06)
[2017-10-21] MEDS: ONDANSETRON HCL 4 MG/2 ML VIAL IV PRN (00:32)
[2017-10-21 05:18] VITALS: BP 116/45
[2017-10-21] MEDS: traMADol HCL 50 MG TAB PO PRN ×2 (05:52→13:19)
[2017-10-21] MEDS ORDERED: AMPI500C8 PO (08:55)
[2017-10-21 09:00] VITALS: BP 104/62
[2017-10-21] MEDS: TAMSULOSIN HYDROCHLORIDE 0.4 MG CAP PO SCH (10:10)
[2017-10-21] MEDS: LORazepam 0.5 MG TAB PO SCH (10:10)
[2017-10-21] MEDS: VANCOMYCIN 1,250 MG in D5W 5% 250 ML IV SCH (10:11)
[2017-10-21 11:54] VITALS: BP 104/62
[2017-10-21 12:13] VITALS: BP 124/79
[2017-10-21 13:00] VITALS: BP 124/79
== END 2017-10-21 14:45 | DRG 699 ==
LOC: ER 19:41 → EDUNIT# 19:41 → OVERFLOW 19:42 → EEVIPCON 19:42 → EAST 10-18 01:19
PROVIDERS: ADMIT Internal Medicine; ATTEND Internal Medicine
DX: T83.518A Infection and inflammatory reaction due to other urinary catheter, initial encounter (principal); L02.211 Cutaneous abscess of abdominal wall; L02.818 Cutaneous abscess of other sites; L03.818 Cellulitis of other sites; T83.038A Leakage of other urinary catheter, initial encounter; Y84.6 Urinary catheterization as the cause of abnormal reaction of the patient, or of later complication, without mention of misadventure at the time of the procedure; N30.91 Cystitis, unspecified with hematuria; B95.2 Enterococcus as the cause of diseases classified elsewhere; Z80.0 Family history of malignant neoplasm of digestive organs; Z83.3 Family history of diabetes mellitus; Z87.442 Personal history of urinary calculi; Z88.8 Allergy status to other drugs, medicaments and biological substances; Z88.1 Allergy status to other antibiotic agents; Z91.041 Radiographic dye allergy status; Z79.899 Other long term (current) drug therapy; Z90.89 Acquired absence of other organs; Z87.891 Personal history of nicotine dependence; Z71.89 Other specified counseling; Y92.89 Other specified places as the place of occurrence of the external cause
CPT/HCPCS: 36415; 80053; 80202; 81001; 85025; 85610; 85730; 87077; 87081; 87086; 87186; 87205; 96365; J2405; J7060

== ENCOUNTER → 2017-12-31 | Outpatient (CLI) | payer OTHER ==
[~2017-12-31] MED LIST changes: +AMPI500C8 PO; -LORA-654 PO; -MESA1.2T PO; +MESA800T PO; +OXYB15TA12 PO
== END | disposition home or self-care (01) ==
LOC: LAB 14:03
PROVIDERS: ATTEND Urology
DX: N39.0 Urinary tract infection, site not specified (principal); N31.2 Flaccid neuropathic bladder, not elsewhere classified; Z79.899 Other long term (current) drug therapy
CPT/HCPCS: 87086

== ENCOUNTER 2018-02-10 12:55 | Emergency (ER) | payer OTHER ==
[~2018-02-10] VITALS: Ht 182.9 cm; Wt 72.6 kg
[2018-02-10 15:48] LABS: Basophils # (auto) 0.1 uL; Mean Corpuscular Hemoglobin 29.3 pg (28.0-32.0); Neutrophils # (auto) 8.5 uL; White Blood Cell 11.6 10^3/uL (4.4-10.8)
[2018-02-10 15:51] LABS: Basophils % (auto) 0.6 % (0.0-2.0); Eosinophils # (auto) 0.3 uL; Eosinophils % (auto) 2.3 % (0.0-7.0); Hematocrit 52.1 % (41.0-53.0); Hemoglobin 18.4 g/dL (13.5-17.5); Lymphocytes # (auto) 1.9 uL; Lymphocytes % (auto) 16.5 % (10.0-50.0); Mean Corpuscular Hgb Conc. 35.3 g/dL (32.0-36.0); Mean Corpuscular Volume 83.1 fL (80.0-100.0); Monocytes # (auto) 0.9 uL; Monocytes % (auto) 7.7 % (0.0-12.0); Neutrophils % (auto) 72.9 % (37.0-80.0); Nucleated Red Blood Cells % 0.1 %; Platelet Count (auto) 247 10^3/uL (140-450); Red Blood Cells 6.27 10^6/uL (4.5-5.90); Red Cell Distribution Width 13.7 % (11.8-14.3)
[2018-02-10 15:56] LABS: Albumin 4.7 g/dL (3.4-5.0); BUN/Creatinine Ratio 16.3; Bilirubin, Total 0.9 mg/dL (0.2-1.0); Calcium 9.6 mg/dL (8.5-10.1); Potassium 3.6 mmol/L (3.5-5.1); Total Protein 7.8 g/dL (6.4-8.2)
[2018-02-10 16:06] VITALS: BP 137/87
[2018-02-10] MEDS: HYDROcodone-ACET 10/325MG TAB PO ONE (16:29)
[2018-02-10] MEDS: ONDANSETRON ODT 4 MG TAB PO ONE (16:30)
[2018-02-10 17:22] LABS: Urine Bacteria FEW /hpf (None Seen); Urine Blood 3+ /uL (Negative); Urine Specific Gravity 1.015 (1.001-1.035); Urine WBC 121 /hpf (0 - 3)
== END 2018-02-10 17:21 ==
LOC: ER 12:55 → EEVIPCON 12:55 → ER 17:21
DX: N30.90 Cystitis, unspecified without hematuria (principal); T83.098A Other mechanical complication of other urinary catheter, initial encounter; Z88.1 Allergy status to other antibiotic agents; Z88.8 Allergy status to other drugs, medicaments and biological substances; Z79.899 Other long term (current) drug therapy; Y84.6 Urinary catheterization as the cause of abnormal reaction of the patient, or of later complication, without mention of misadventure at the time of the procedure; Y92.89 Other specified places as the place of occurrence of the external cause
CPT/HCPCS: 36415; 76942; 80053; 81001; 85025; 99285; Q0162